=== PATIENT | male | born 1985 | race Caucasian/White ===

== ENCOUNTER 2021-03-05 06:16 | Emergency (ER) | payer SELFPAY ==
[~2021-03-05] VITALS: Ht 180.3 cm; Wt 95.3 kg
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
--- NOTE | 2021-03-05 06:40 | NUR ---
Dr. Stoll at bedside for MSE.
[2021-03-05] MEDS ORDERED: HYDROMORPHONE 1 MG/1 ML DISP.SYRIN IV ONE ×2 (06:45→08:30)
[2021-03-05 06:59] LABS: HEMATOCRIT 46.2 % (36.7-47.1); MEAN CORPUSCULAR VOLUME 84.7 fL (73.0-96.2); PLATELET COUNT (AUTO) 163 K/uL (152-348)
[2021-03-05 07:07] LABS: CREATININE 1.2 mg/dL (0.6-1.3); POTASSIUM 3.7 mmol/L (3.5-5.1)
[2021-03-05] MEDS ORDERED: HYDROMORPHONE 1 MG/1 ML DISP.SYRIN ONE ×2 (07:11→08:41)
[2021-03-05 07:12] LABS: BILIRUBIN,DIRECT 0.1 mg/dL (0.0-0.2); BILIRUBIN,TOTAL 0.8 mg/dL (0.2-1.0); TOTAL PROTEIN, SERUM 7.3 g/dL (6.4-8.2)
[2021-03-05] MEDS ORDERED: TETRACAINE HCL 0.5% OPHT DROP 2 ML BOTTLE ONE (08:32)
[2021-03-05] MEDS ORDERED: FLUORESCEIN SODIUM 1 MG STRIP ONE (08:32)
[2021-03-05] MEDS ORDERED: TETRACAINE HCL 0.5% OPHT DROP 2 ML BOTTLE OP ONE (08:45)
[2021-03-05] MEDS ORDERED: FLUORESCEIN SODIUM 1 MG STRIP OP ONE (08:45)
[2021-03-05] MEDS ORDERED: NEOMY/BACITRA/POLYMYXIN B OINT UD PACKET TP ONE ×2 (09:15→09:24)
[2021-03-05] MEDS ORDERED: CLONIDINE HCL 0.2 MG TABLET PO ONE (09:15)
[2021-03-05] MEDS ORDERED: CLONIDINE HCL 0.2 MG TABLET ONE (09:24)
[2021-03-05] MEDS ORDERED: AMLO10TA4 PO (10:22)
[2021-03-05] MEDS ORDERED: NAPR-1164 PO (10:22)
[2021-03-05 10:31] VITALS: BP 177/89
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
--- NOTE | 2021-03-05 11:11 | NUR ---
pt ride here. pt walks in steady gait. pt denies pain or nausea or dizzines at this time.
== END 2021-03-05 11:12 | disposition home or self-care (01) ==
LOC: ER 06:21
DX: S02.2XXA Fracture of nasal bones, initial encounter for closed fracture (principal); M79.641 Pain in right hand; M25.522 Pain in left elbow; M25.561 Pain in right knee; M79.642 Pain in left hand; M79.631 Pain in right forearm; Z79.899 Other long term (current) drug therapy; V89.2XXA Person injured in unspecified motor-vehicle accident, traffic, initial encounter; Y93.89 Activity, other specified; Y92.89 Other specified places as the place of occurrence of the external cause; Y99.8 Other external cause status
CPT/HCPCS: 36415; 70450; 70486; 71045; 72125; 73080; 73090; 73130 ×2; 73564; 80048; 80076; 85025; 93005; 96374; 96376; 99285; J1170 ×2; A4217; A4663

== ENCOUNTER 2021-03-06 15:45 | Emergency (ER) | payer SELFPAY ==
[~2021-03-06] VITALS: Ht 180.3 cm; Wt 97.5 kg
[~2021-03-06 15:45] MED LIST: AMLO10TA4 PO; NAPR-1164 PO
--- NOTE | 2021-03-06 16:05 | NUR ---
Pt arrived, requesting work note. After visiting with provider, work note and after care instructions provided. Patient discharged to home in stable condition. Written and verbal after care instructions given. Patient verbalizes understanding of instructions. Stressed follow up or return to ER for worsening s/s.
[2021-03-06 16:09] VITALS: BP 156/92
== END 2021-03-06 16:09 | disposition home or self-care (01) ==
LOC: ER 15:47
DX: M54.2 Cervicalgia (principal); M79.631 Pain in right forearm; M25.522 Pain in left elbow; R03.0 Elevated blood-pressure reading, without diagnosis of hypertension; Z82.49 Family history of ischemic heart disease and other diseases of the circulatory system
CPT/HCPCS: A4663